=== PATIENT | female | born 1995 | race Caucasian/White ===

== ENCOUNTER 2016-08-04 07:15 | Emergency (ER) | payer SELFPAY ==
[~2016-08-04] VITALS: Ht 154.9 cm; Wt 76.3 kg
[~2016-08-04 07:15] MED LIST: PANT20 PO
[2016-08-04 07:18] VITALS: BP 124/83; PULSE 69; RESP 18; TEMP 98.1; O2SAT 98
--- NOTE | 2016-08-04 07:53 | RADHPO ---
EXAM DATE/TIME: 08/04/2016 07:40 [place] COMPARISON: No previous studies available for comparison. INDICATIONS : Left foot pain with bruising and swelling. MEDICAL HISTORY : None. SURGICAL HISTORY : None. ENCOUNTER: Initial ACUITY: 1 week PAIN SCORE: 3/10 LOCATION: Left anterior foot FINDINGS: There is soft tissue swelling without fracture or dislocation.. The calcaneus is intact. Bony methods examiner alization is normal. CONCLUSION: Negative for fracture or dislocation. Follow up in 7-10 days is suggested if symptoms persist. Alden Esquivel MD FACR on August 04, 2016 at 7:50 Board Certified Radiologist. This report was verified electronically.
[2016-08-04] MEDS ORDERED: CEPH-460 PO (08:05)
--- NOTE | 2016-08-04 08:05 | PD ---
HPI Chief Complaint: Skin Problem Time Seen by Provider: 07:35 Travel History International Travel<30 days: No Contact w/Intl Traveler<30days: No Traveled to known affect area: No History of Present Illness HPI So 21-year-old woman who presents to the emergency room due to complaints. First off her left foot is injured. She states about a week ago she was drunk and woke up the next morning with bruising and pain in her foot. There is pain over the MTP joints the lateral foot, as well as over the dorsal midfoot. There is ecchymosis and bruising of both these areas. Pains of weightbearing. She has not injured the foot before. Symptoms been persistent so she wanted to get checked. She also worried about some dermal implants. She got micro-dermal/transdermal implants on her left iliac crest. She got a couple weeks ago. They've been inflamed and irritated and draining some fluid with some surrounding erythema and redness. She isn't been trying to get followed up with the tattoo studio that today but she is not unable to meet up. History Past Medical History Medical History: Denies Significant Hx Influenza Vaccination: No LMP: 1 WEEK AGO : 0 Past Surgical History Surgical History: No Previous Surgery Social History Alcohol Use: Yes ("OFTEN") Tobacco Use: No Allergies-Medications (Allergen,Severity, Reaction): Coded Allergies: Latex (Unverified Allergy, Severe, RASH, 08/04/16) Maple Syrup (Unverified Allergy, Severe, hives, 08/04/16) Dust (Verified Allergy, Mild, SNEEZING, 08/04/16) Reported Meds & Prescriptions Reported Meds & Active Scripts Active Review of Systems Except as stated in HPI: all other systems reviewed are Neg Physical Exam Narrative GENERAL: The 21 year-old woman, generally well-appearing, no acute distress. SKIN: Warm and dry. Metal and cased stud/small stone in the set of 3 corresponding with 3 star tattoos that she has. There is some inflammation surrounding it with some blotchy erythema. There is no active draining purulence. There is no raised erythema or induration or obvious infection. HEAD: Atraumatic. Normocephalic. EYES: Pupils equal and round. No scleral icterus. No injection or drainage. ENT: No nasal bleeding or discharge. Mucous membranes pink and moist. NECK: Trachea midline. No JVD. CARDIOVASCULAR: Regular rate and rhythm. No murmur appreciated. RESPIRATORY: No accessory muscle use. Clear to auscultation. Breath sounds equal bilaterally. GASTROINTESTINAL: Abdomen flat and soft. Musculoskeletal: Left foot shows ecchymosis and bruising on the distal lateral foot, as well as on the dorsum of the foot just distal to the anterior talotibial joint. She has full range of motion. There is tenderness across the entire dorsum of the foot. Good pulses. Good perfusion. Data Data Last Documented VS Vital Signs Date Time Temp Pulse Resp B/P Pulse Ox O2 Delivery O2 Flow Rate FiO2 08/04/16 07:18 98.1 69 18 124/83 98 Orders Foot, Limited (2vws) (08/04/16 ) [facility] Medical Decision Making Medical Screen Exam Complete: Yes Emergency Medical Condition: Yes Interpretation(s) Foot x-ray negative Differential Diagnosis Foot fracture, strain or sprain, contusion, ligamentous injury, infection, allergic reaction, other Narrative Course Medical decision making 21-year-old with left foot injury rectally 7 days ago, doesn't room mechanism, bruising and pain with weightbearing. X-rays negative. Recommend continue supportive treatment. Please micro-dermal implants appear to have some local inflammation. Possibly early infection. I recommend that she reduce the amount of friction on them. Give her an ABD pad to cover them and reduce friction or inflammation. We'll put her on antibiotics. Follow-up with her piercing studio. Diagnosis Primary Impression: Left foot pain Additional Impression: Rash Additional Instructions: Take Keflex as prescribed. Keep a bulky dressing over your micro-dermal implants to reduce friction and inflammation. Follow-up with your piercing studio in the next 2-3 days. Weight-bear on the left foot as tolerated. Keep it elevated when you're not walking on it. Use ibuprofen as needed for pain. If the foot is not completely healed in 7 days, follow-up with her primary doctor for repeat x-rays. Med/Other Pt SpecificInfo: Prescription(s) given Scripts Cephalexin (Keflex)500 Mg [id number] Mg PO Q8H 7 Days Ref 0 Prov:Immanuel Dhaliwal MD 08/04/16 Disposition: 01 DISCHARGE HOME Condition: Stable Immanuel Dhaliwal MD Aug 04, 2016 08:05
== END 2016-08-04 08:34 | disposition home or self-care (01) ==
LOC: PHEFT 07:15
DX: M79.672 Pain in left foot (principal); R21 Rash and other nonspecific skin eruption
CPT/HCPCS: 73620; 99283

== ENCOUNTER 2017-11-03 09:50 | Emergency (ER) | payer SELFPAY ==
[~2017-11-03] VITALS: Ht 154.9 cm; Wt 74.0 kg
[~2017-11-03 09:50] MED LIST changes: +CEPH-460 PO; -PANT20 PO
[2017-11-03 09:54] VITALS: BP 133/78; PULSE 100; RESP 16; TEMP 97.3; O2SAT 100
--- NOTE | 2017-11-03 10:09 | PD ---
HPI Chief Complaint: GI Complaint Time Seen by Provider: 09:58 Travel History International Travel<30 days: No Contact w/Intl Traveler<30days: No Traveled to known affect area: No History of Present Illness HPI 22-year-old female presents with abdominal pain, nausea, black diarrhea and general ill feeling over the past day. She denies any sick contacts. She denies recurrent history of this. She denies any other concurrent complaints. Quality is crampy. It is constant in nature. Severity is moderate. She states she recently finished her last menstrual cycle. She denies any over-the- counter medications including Pepto-Bismol. PFSH Past Medical History Bipolar Disorder: Yes Cancer: No Cardiovascular Problems: No Diabetes: No Diminished Hearing: No Glaucoma: No Hepatitis: No Hiatal Hernia: No Hypertension: No Respiratory: No Immunizations Current: Yes Thyroid Disease: No Influenza Vaccination: No ?: Not LMP: LAST WEEK : 0 Past Surgical History Surgical History: No Previous Surgery Pacemaker: No Other Surgery: No Social History Alcohol Use: Yes ("OFTEN") Tobacco Use: No Substance Use: No Allergies-Medications (Allergen,Severity, Reaction): Coded Allergies: Sugars, Metabolically Active (Unverified Allergy, Severe, hives, 11/03/17) latex (Unverified Allergy, Severe, RASH, 11/03/17) house dust (Unverified Allergy, Mild, SNEEZING, 11/03/17) Reported Meds & Prescriptions Reported Meds & Active Scripts Active Reglan (Metoclopramide HCl) 5 Mg Tab 5 Mg PO TID PRN Review of Systems Except as stated in HPI: all other systems reviewed are Neg Physical Exam Narrative GENERAL: 22-year-old female in no apparent distress SKIN: Focused skin assessment warm/dry. HEAD: Atraumatic. Normocephalic. EYES: Pupils equal and round. No scleral icterus. No injection or drainage. ENT: No nasal bleeding or discharge. Mucous membranes pink and moist. NECK: Trachea midline. No JVD. CARDIOVASCULAR: Regular rate and rhythm. No murmur appreciated. RESPIRATORY: No accessory muscle use. GASTROINTESTINAL: Abdomen soft, non-tender, nondistended. No rebound or guarding MUSCULOSKELETAL: No obvious deformities. No clubbing. No cyanosis. No edema. NEUROLOGICAL: Awake and alert. No obvious cranial nerve deficits. Motor grossly within normal limits. Normal speech. PSYCHIATRIC: Appropriate mood and affect; insight and judgment normal. RECTAL EXAM: Performed with nursing care attendant and after permission. No external hemorrhoid or fissure, stool is brown, non-bloody. Data Data Last Documented VS Vital Signs Date Time Temp Pulse Resp B/P (MAP) Pulse Ox O2 Delivery O2 Flow Rate FiO2 11/03/17 10:34 16 100 Room Air 11/03/17 10:34 82 11/03/17 09:54 97.3 Orders Orders Complete Blood Count With Diff (11/03/17 10:03) Comprehensive Metabolic Panel (11/03/17 10:03) Urinalysis - C+S If Indicated (11/03/17 10:03) Iv Access Insert/Monitor (11/03/17 10:03) Oximetry (11/03/17 10:03) Lipase (11/03/17 10:03) Ed Urine Pregnancytest Poc (11/03/17 10:03) Metoclopramide Inj (Reglan Inj) (11/03/17 10:15) Urine Culture (11/03/17 10:15) Ed Discharge Order (11/03/17 11:06) Labs Laboratory Tests Test 11/03/17 10:15 11/03/17 10:25 Urine Collection Type CLEAN CATCH Urine Color YELLOW Urine Turbidity CLEAR Urine pH 7.0 Urine Specific [place] 1.015 Urine Protein NEG mg/dL Urine Glucose (UA) NEG mg/dL Urine Ketones NEG mg/dL Urine Occult Blood NEG Urine Nitrite NEG Urine Reducing Substances Urine Bilirubin NEG Urine Urobilinogen 0.2 MG/DL Urine Leukocyte Esterase MOD Urine WBC 9-14 /hpf Urine Squamous Epithelial Cells >8 /hpf Urine Bacteria MOD /hpf Microscopic Urinalysis Comment CULTURE INDICATED White Blood Count 9.0 TH/MM3 Red Blood Count 3.90 MIL/MM3 Hemoglobin 13.2 GM/DL Hematocrit 38.4 % Mean Corpuscular Volume 98.5 FL Mean Corpuscular Hemoglobin 33.9 PG Mean Corpuscular Hemoglobin Concent 34.4 % Red Cell Distribution Width 11.4 % Platelet Count 279 TH/MM3 Mean Platelet Volume 8.9 FL Neutrophils (%) (Auto) 57.9 % Lymphocytes (%) (Auto) 30.9 % Monocytes (%) (Auto) 9.8 % Eosinophils (%) (Auto) 0.9 % Basophils (%) (Auto) 0.5 % Neutrophils # (Auto) 5.2 TH/MM3 Lymphocytes # (Auto) 2.8 TH/MM3 Monocytes # (Auto) 0.9 TH/MM3 Eosinophils # (Auto) 0.1 TH/MM3 Basophils # (Auto) 0.0 TH/MM3 CBC Comment DIFF FINAL Differential Comment Blood Urea Nitrogen 14 MG/DL Creatinine 0.92 MG/DL Random Glucose 94 MG/DL Total Protein 8.1 GM/DL Albumin 4.2 GM/DL Calcium Level 9.3 MG/DL Alkaline Phosphatase 66 U/L Aspartate Amino Transf (AST/SGOT) 13 U/L Alanine Aminotransferase (ALT/SGPT) 22 U/L Total Bilirubin 0.3 MG/DL Sodium Level 142 MEQ/L Potassium Level 3.6 MEQ/L Chloride Level 106 MEQ/L Carbon Dioxide Level 26.8 MEQ/L Anion Gap 9 MEQ/L Estimat Glomerular Filtration Rate 76 ML/MIN Lipase 96 U/L [facility] Medical Decision Making Medical Screen Exam Complete: Yes Emergency Medical Condition: Yes Medical Record Reviewed: Yes (Past history confirmed) Interpretation(s) CBC & BMP Diagram 11/03/17 10:25 Albumin 4.2, Calcium Level 9.3 Differential Diagnosis Gastroenteritis, dehydration, hemorrhoid... Narrative Course Will check blood work and dose with Reglan and reevaluate. ed workup without emergent process, guaiac is negative, labs without emergent findings, ua appears contaminated, given no uti symptoms will follow culture, patient denies any new complaints and states that they are feeling better. Patient happy with care, all questions answered. Patient knows that follow up is incumbent on them and to return to the emergency room immediately if new or worsening symptoms develop. Patient given strict return precautions, vitals reviewed and are normal, agrees to further workup as an outpatient. [facility] Point of Care Internal Pos. & Neg. Controls: Passed Fecal Specimen Occult Blood: Negative Diagnosis Primary Impression: Abdominal pain Qualified Codes: R10.9 - Unspecified abdominal pain Additional Impressions: Black stool Nausea Patient Instructions: General Instructions Additional Instructions: return as needed, follow with primary this week, reglan as needed Med/Other Pt SpecificInfo: Prescription(s) given Scripts Metoclopramide (Reglan) 5 Mg Tab 5 MG PO TID Y for NAUSEA, #10 TAB 0 Refills Prov: Bety Avila MD 11/03/17 Disposition: 01 DISCHARGE HOME Condition: Stable Bety Avila MD Nov 03, 2017 10:09
[2017-11-03] MEDS ORDERED: METOCLOPRAMIDE HCL 10 MG/2 ML VIAL IV PUSH ONE (10:15)
[2017-11-03 10:34] VITALS: BP 120/62; PULSE 82; RESP 16; O2SAT 100
[2017-11-03 10:40] LABS: BILIRUBIN, URINE NEG (NEG); BLOOD, URINE NEG (NEG); GLUCOSE,URINE NEG (NEG); KETONE, URINE NEG (NEG); NITRITE,URINE NEG (NEG); URINE COLOR YELLOW (YELLW/STRAW); URINE LEUKOCYTE ESTERASE MOD (NEG)
[2017-11-03 10:42] LABS: AUTOMATED NEUTROPHIL # 5.2 TH/MM3 (1.8-7.7); BASOPHIL % 0.5 % (0.0-2.0); EOSINOPHIL # 0.1 TH/MM3 (0-0.4); EOSINOPHIL % 0.9 % (0.0-4.0); HEMATOCRIT 38.4 % (35.0-46.0); HEMOGLOBIN 13.2 GM/DL (11.6-15.3); LYMPH % 30.9 % (9.0-44.0); LYMPHOCYTE # 2.8 TH/MM3 (1.0-4.8); MEAN CELL VOLUME 98.5 FL (80.0-100.0); MEAN CORPUSCULAR HEMOGLOBIN 33.9 PG (27.0-34.0); MEAN CORPUSCULAR HGB CONC 34.4 % (32.0-36.0); MEAN PLATELET VOLUME 8.9 FL (7.0-11.0); MONO % 9.8 % (0.0-8.0); MONOCYTE # 0.9 TH/MM3 (0-0.9); NEUT % 57.9 % (16.0-70.0); PLATELET COUNT 279 TH/MM3 (150-450); RED CELL DISTRIBUTION WIDTH 11.4 % (11.6-17.2)
[2017-11-03 10:52] LABS: CHLORIDE 106 MEQ/L (98-107); SODIUM (NA) 142 MEQ/L (136-145)
[2017-11-03 10:53] LABS: BACTERIA, URINE MOD /hpf; SQUAMOUS EPITHELIAL CELL URINE >8 /hpf (0-5)
[2017-11-03 10:56] LABS: ALBUMIN 4.2 GM/DL (3.4-5.0); BICARBONATE 26.8 MEQ/L (21.0-32.0); BLOOD UREA NITROGEN 14 MG/DL (7-18); CALCIUM 9.3 MG/DL (8.5-10.1); GLUCOSE,RANDOM 94 MG/DL (74-106)
[2017-11-03 10:59] LABS: ALT (GPT) 22 U/L (10-53); AST (GOT) 13 U/L (15-37); CREATININE 0.92 MG/DL (0.50-1.00); GLOMERULAR FILTRATION RATE 76 ML/MIN (>89)
[2017-11-03] MEDS ORDERED: REGL5TAB PO (10:59)
[2017-11-03 11:01] LABS: TOTAL BILIRUBIN ADULT 0.3 MG/DL (0.2-1.0); TOTAL PROTEIN 8.1 GM/DL (6.4-8.2)
[2017-11-03 11:02] LABS: ALKALINE PHOSPHATASE 66 U/L (45-117)
== END 2017-11-03 11:38 | disposition home or self-care (01) ==
LOC: PHED 09:50
DX: R10.9 Unspecified abdominal pain (principal); R19.5 Other fecal abnormalities; R11.0 Nausea; R19.7 Diarrhea, unspecified; F31.9 Bipolar disorder, unspecified; Z79.899 Other long term (current) drug therapy
CPT/HCPCS: 80053; 81001; 83690; 84703; 85025; 87086; 96374; 99284; J2765